=== PATIENT | female | born 1995 | race Caucasian/White ===

== ENCOUNTER 2019-06-18 19:32 | Emergency (ER) | payer OTHER ==
[~2019-06-18] VITALS: Ht 170.2 cm; Wt 61.2 kg
[~2019-06-18 19:32] MED LIST: BIRTH CONTROL PILL; LEXAPRO 10 MG T10 M2 PO; OSELB75 PO
[2019-06-18] MEDS ORDERED: ZINC50 M1 PO (19:42)
[2019-06-18 20:05] LABS: ABSOLUTE NEUTROPHILS 6.3 thou/uL (1.4-8.2); BASOPHILS 0.2 % (0.0-2.0); EOSINOPHILS 1.1 % (0.0-3.0); HEMATOCRIT 46.2 % (37.0-47.0); HEMOGLOBIN 15.8 gm/dL (12.0-15.0); LYMPHOCYTES 20.8 % (24.0-44.0); MCH 31.8 pg (26.0-34.0); MCHC 34.1 g/dL (28.0-37.0); MCV 93.2 fL (80.0-100.0); MONOCYTES 6.2 % (1.0-8.0); PLATELET COUNT 335 thou/uL (150-400); POLYS 71.7 % (36.0-66.0); RBC 4.96 mil/uL (4.20-5.00); RDW 12.2 % (10.5-14.5); WBC 8.8 thou/uL (4.0-11.0)
[2019-06-18 20:15] LABS: CALCIUM 8.9 mg/dL (8.5-10.1); CREATININE 0.7 mg/dL (0.6-1.0)
[2019-06-18] MEDS ORDERED: PEPCID40 MG PO (20:15)
[2019-06-18] MEDS ORDERED: CARAFATE 1 GM TA1 G1 PO (20:15)
[2019-06-18] MEDS ORDERED: ONDANSETRON HCL4 M2 PO (20:15)
[2019-06-18 20:16] LABS: POTASSIUM 4.5 mmol/L (3.5-5.1)
[2019-06-18 20:21] LABS: ALBUMIN 3.5 g/dL (3.4-5.0); TOTAL BILIRUBIN 0.4 mg/dL (<0.1-1.0); TOTAL PROTEIN 7.5 g/dL (6.4-8.2)
[2019-06-18 20:51] VITALS: BP 110/65
== END 2019-06-18 20:51 | disposition home or self-care (01) ==
LOC: ER 19:32
PROVIDERS: Emergency Medicine
DX: K62.5 Hemorrhage of anus and rectum (principal); F17.210 Nicotine dependence, cigarettes, uncomplicated; Z88.0 Allergy status to penicillin

== ENCOUNTER 2020-10-01 08:21 | Emergency (ER) | payer OTHER ==
[~2020-10-01] VITALS: Ht 170.2 cm; Wt 63.5 kg
[~2020-10-01 08:21] MED LIST changes: +CARAFATE 1 GM TA1 G1 PO; +ONDANSETRON HCL4 M2 PO; +PEPCID40 MG PO; +ZINC50 M1 PO
[2020-10-01 08:24] VITALS: BP 121/68
== END 2020-10-01 09:43 | disposition home or self-care (01) ==
LOC: ER 08:21
DX: M65.4 Radial styloid tenosynovitis [de Quervain] (principal); F17.210 Nicotine dependence, cigarettes, uncomplicated; Z79.899 Other long term (current) drug therapy; Z88.0 Allergy status to penicillin